=== PATIENT | female | born 1995 | race Caucasian/White ===

== ENCOUNTER 2019-03-02 17:06 | Emergency (ER) | payer BC ==
[~2019-03-02] VITALS: Ht 167.6 cm; Wt 81.8 kg
[2019-03-02] MEDS ORDERED: excedrin (17:16)
[2019-03-02] MEDS ORDERED: PERCOCET 5MG/325MG TAB PO ONE (17:45)
--- NOTE | 2019-03-02 18:31 | REP ---
Acute abdominal series: Four views. History: Free air post laparoscopy. The patient is status post uterine ablation and myomectomy on the previous day March 01. Findings: There is a small sliver of free intraperitoneal air under the right leaf of the hemidiaphragm. The chest is otherwise negative. There is no evidence of infiltrate. Heart is not enlarged. Supine and erect views of the abdomen show a unremarkable bowel gas pattern with air proximally and distally in a normal caliber colon loops. Psoas margins and flank stripes are intact. No mass or organomegaly is seen. Phleboliths are noted in the pelvis. No pathologic calcification is seen. Impression: Normal bowel gas pattern. Small quantity of residual free air under the right diaphragmatic leaflet. Otherwise negative. Electronically Signed by Dylan Clifford MD 03/02/2019 06:22 P
[2019-03-02] MEDS ORDERED: NORC1TAB7 PO (18:41)
[2019-03-02 18:48] VITALS: BP 133/87
--- NOTE | 2019-03-02 23:25 | ECGEPIP ---
Stationary ECG Study [facility] - ED Test Date: 2019-03-02 Pat Name: BRANDON LUQUE Department: Room: - Gender: F [employer]ist: CELSO : [id number] Requested By: BENITA CHAUHAN Order Number: [id number] Reading MD: Matthew Lewis Measurements Intervals [place] Rate: 95 P: 17 [place]: 116 QRS: 61 QRSD: 93 T: 26 QT: 347 QTc: 438 Interpretive Statements SINUS RHYTHM WITH SINUS ARRHYTHMIA WITH SHORT [place] INTERVAL POSSIBLE LEFT ATRIAL ENLARGEMENT INCOMPLETE RIGHT BUNDLE BRANCH BLOCK NO PRIORS FOR COMPARISON Electronically Signed On 03-02-2019 23:25:25 EDT by Matthew Lewis
--- NOTE | 2019-03-04 14:01 | ED PDOC ---
Post-Departure Follow-Up certified letter sent to pt re formal reading of abdl series. pt w recent surger y. no surgeon documented in chart. please obtain name of surgeon and fax report Godfrey Argueta MD Mar 04, 2019 14:01
== END 2019-03-02 19:09 | disposition home or self-care (01) ==
LOC: M ED 17:06
DX: R07.9 Chest pain, unspecified (principal); G89.18 Other acute postprocedural pain